=== PATIENT | female | born 1990 | race Caucasian/White ===

== ENCOUNTER 2022-04-26 14:50 | Outpatient (RCR) | payer OTHER, SELFPAY ==
[2022-04-26 16:00] LABS: Basophils Percent Auto 0.5 % (0.2-1.2); Eosinophils Absolute Auto 0.1 K/mm3 (0-0.3); Eosinophils Percent Auto 1.1 % (0-4.4); Hematocrit 35.7 % (37.0-47.0); Hemoglobin 12.5 g/dL (12.0-15.0); Immature Granulocyte Absolute 0.02 K/mm3 (0.00-0.031); Immature Granulocyte Percent A 0.3 % (0-0.5); Lymphocytes Absolute Auto 1.59 K/mm3 (0.9-3.2); Lymphocytes Percent Auto 26.1 % (18.3-44.2); Mean Corpuscular Hemoglobin 29.6 pg (26-34); Mean Corpuscular Volume 84.4 fl (80-100); Mean Platelet Volume 10.8 fl (7.4-10.4); Monocytes Absolute Auto 0.6 K/mm3 (0.1-0.6); Neutrophils Absolute Auto 3.8 K/mm3 (1.3-6.7); Platelet Count Result 197 k/mm3 (150-375); Red Blood Count 4.23 M/mm3 (4.2-5.4); White Blood Count 6.1 K/mm3 (4.5-10.0)
[2022-04-26 16:47] LABS: Hepatitis B Surface Antigen Negative (Negative)
[2022-04-26 16:52] LABS: HIV 1/2 Ab P24 Ag Result Negative (Negative)
[2022-04-27 12:32] LABS: Rapid Plasma Reagin Non-Reactive (NonReactive)
[2022-04-28 16:03] LABS: CMV IgG Antibody <0.60 U/mL (<0.60)
== END 2022-07-25 23:59 | disposition home or self-care (01) ==
LOC: ANHLAB 14:50
PROVIDERS: Visit Provider Student in an Organized Health Care Education/Training Program
DX: Z11.4 Encounter for screening for human immunodeficiency virus [HIV] (principal); N94.89 Other specified conditions associated with female genital organs and menstrual cycle
CPT/HCPCS: 36415; 84702; 85025; 86592; 86644; 86703; 86747; 86787; 86850; 86900; 86901; 87086; 87340; G0432

== ENCOUNTER 2024-06-19 14:50 | Emergency (ER) | payer OTHER, SELFPAY ==
--- NOTE | ~2024-06-19 | XR_ITS ---
XR abdomen/kub 1V Ordering provider: Lary Moura APRN History: . pt found worms in her stool . Comparison: None. FINDINGS: BOWEL: Nonobstructive bowel gas pattern. Fecal material is loaded in the colon. ORGANOMEGALY: None. SIGNIFICANT PATHOLOGIC CALCIFICATIONS: None. OTHER: No free air is seen under the diaphragm. IMPRESSION: NO ACUTE ABDOMINAL FINDINGS. Constipation. Reviewed, dictated and finalized at location A.
[2024-06-19 14:53] VITALS: BP 159/102; PULSE 90; RESP 16; TEMP 36.2; O2SAT 99
--- NOTE | 2024-06-19 15:14 | ED_ITS ---
HPI - General Adult General Chief complaint: Unspecified <Lary Moura APRN - Last Filed: 06/19/24 15:19> Stated complaint: Abdominal pain, fatigue <Lary Moura APRN - Last Filed: 06/19/24 15:19> Time Seen by Provider: 06/19/24 15:00 <Lary Moura APRN - Last Filed: 06/19/24 15:19> Focused HPI: Patient is a 34 year old female who presents to the ER with concerns of recent passage of a tapeworm. She reports her last bowel movement was 2 days ago. Earlier today she endorses some blood in her stool and reports a tapeworm came out. Pt denies any rectal pain, abdominal pain, or recent fevers. GENERAL: Well-appearing, well-nourished, and in no acute distress. HEAD: Normocephalic, atraumatic. CHEST: Clear to auscultation. ?No respiratory distress. HEART: Regular rate and rhythm.? NEURO: ?Alert and oriented x3. Patient screened in triage and initial orders placed.? ?Additional care and disposition to be based upon?diagnostic testing and treatment. <Lary Moura APRN - Last Filed: 06/19/24 15:19> History of Present Illness HPI narrative: I agree with the above HPI <Kulwinder Brunson MD - Last Filed: 06/19/24 21:33> Related Data Home medications: Home Medications ?Medication ?Instructions ?Recorded ?Confirmed ?Last Taken ?Type prenat.vits,susie,tel-onse-mxhok 1 tablet PO DAILY 05/19/22 07/15/22 Unknown History <Lary Moura APRN - Last Filed: 06/19/24 15:19> Allergies/adverse reactions: Allergies Allergy/AdvReac Type Severity Reaction Status Date / Time minocycline Allergy Mild Rash Verified 09/16/22 10:48 tetracycline Allergy Mild Rash Verified 09/16/22 10:48 <Lary Moura APRN - Last Filed: 06/19/24 15:19> Review of Systems 2 Review of Systems: All systems reviewed & are unremarkable except as noted in HPI and below <Kulwinder Brunson MD - Last Filed: 06/19/24 21:33> PMFSH Past Medical History Medical History: Medical History Anxiety Suppression of menses <Lary Moura APRN - Last Filed: 06/19/24 15:19> Family History Family History: Family History Father Hypertension Grandparent Cerebrovascular accident Malignant neoplasm of skin Mother Heart disease Malignant neoplasm of skin <Lary Moura STEEL LOADER - Last Filed: 06/19/24 15:19> Social History Social History: Social History Smoking status: Current every day smoker Tobacco type: cigarettes Alcohol intake: current Alcohol use details: occasional Substance use: never Living arrangements: with family Occupation/Education: unemployed Gender identity (if verbalized by the patient): Female Sexual Orientation (if Verbalized by the Patient): Straight or Heterosexual <Lary Moura STEEL LOADER - Last Filed: 06/19/24 15:19> Course Vital Signs Vital signs: Vital Signs Temperature 97.2 F L 06/19/24 14:53 Pulse Rate 90 06/19/24 14:53 Respiratory Rate 16 06/19/24 14:53 Blood Pressure 159/102 H 06/19/24 14:53 Pulse Oximetry 99 06/19/24 14:53 Oxygen Delivery Room Air 06/19/24 14:53 Temperature 97.2 F L 06/19/24 14:53 Pulse Rate 90 06/19/24 14:53 Respiratory Rate 16 06/19/24 14:53 Blood Pressure 159/102 H 06/19/24 14:53 Pulse Oximetry 99 06/19/24 14:53 Oxygen Delivery Room Air 06/19/24 14:53 <Lary Moura STEEL LOADER - Last Filed: 06/19/24 15:19> Vital Signs Temperature 97.2 F L 06/19/24 14:53 Pulse Rate 90 06/19/24 14:53 Respiratory Rate 16 06/19/24 14:53 Blood Pressure 159/102 H 06/19/24 14:53 Pulse Oximetry 99 06/19/24 14:53 Oxygen Delivery Room Air 06/19/24 14:53 Temperature 97.2 F L 06/19/24 14:53 Pulse Rate 90 06/19/24 14:53 Respiratory Rate 16 06/19/24 14:53 Blood Pressure 159/102 H 06/19/24 14:53 Pulse Oximetry 99 06/19/24 14:53 Oxygen Delivery Room Air 06/19/24 14:53 <Kulwinder Brunson MD - Last Filed: 06/19/24 21:33> Medical Decision Making MDM Narrative Medical decision making narrative: 34-year-old female presents to the emergency department for evaluation for concern of passing a taper. Patient did pass a white flatness substance and was concerned it was a taper. Patient is currently afebrile with no leukocytosis and a stable hemoglobin. Patient has no acute abnormalities on her CMP UA was negative for infection. CT does show evidence of constipation. Patient was not able to provide a stool sample emergency department. Patient was encouraged to start taking MiraLax and Metamucil to help soften her stools and patient was told to have follow-up with her primary care physician <Kulwinder Brunson MD - Last Filed: 06/19/24 21:33> Vital Signs Vital Signs: Vital Signs Temperature 97.2 F L 06/19/24 14:53 Pulse Rate 90 06/19/24 14:53 Respiratory Rate 16 06/19/24 14:53 Blood Pressure 159/102 H 06/19/24 14:53 Pulse Oximetry 99 06/19/24 14:53 Oxygen Delivery Room Air 06/19/24 14:53 Temperature 97.2 F L 06/19/24 14:53 Pulse Rate 90 06/19/24 14:53 Respiratory Rate 16 06/19/24 14:53 Blood Pressure 159/102 H 06/19/24 14:53 Pulse Oximetry 99 06/19/24 14:53 Oxygen Delivery Room Air 06/19/24 14:53 <Lary Moura APRN - Last Filed: 06/19/24 15:19> Vital Signs Temperature 97.2 F L 06/19/24 14:53 Pulse Rate 90 06/19/24 14:53 Respiratory Rate 16 06/19/24 14:53 Blood Pressure 159/102 H 06/19/24 14:53 Pulse Oximetry 99 06/19/24 14:53 Oxygen Delivery Room Air 06/19/24 14:53 Temperature 97.2 F L 06/19/24 14:53 Pulse Rate 90 06/19/24 14:53 Respiratory Rate 16 06/19/24 14:53 Blood Pressure 159/102 H 06/19/24 14:53 Pulse Oximetry 99 06/19/24 14:53 Oxygen Delivery Room Air 06/19/24 14:53 <Kulwinder Brunson MD - Last Filed: 06/19/24 21:33> Lab Data Result diagrams: 06/19/24 15:34 06/19/24 15:34 <Lary Moura APRN - Last Filed: 06/19/24 15:19> Labs: Lab Results 06/19/24 06/19/24 Range/Units 15:34 16:04 WBC 5.4 (4.5-10.0) K/mm3 RBC 4.68 (4.2-5.4) M/mm3 Hgb 13.1 (12.0-15.0) g/dL Hct 39.7 (37.0-47.0) % MCV 84.8 (80-100) fl MCH 28.0 (26-34) pg MCHC 33.0 (32-36) g/dl RDW 13.6 (11.5-14.5) % Plt Count 246 (150-375) k/mm3 MPV 10.2 (7.4-10.4) fl Immature Gran % (Auto) 0.2 (0-0.5) % Neut % (Auto) 47.0 (45.5-73.1) % Lymph % (Auto) 35.9 (18.3-44.2) % [place] % (Auto) 11.5 H (2.6-8.5) % Eos % (Auto) 3.7 (0-4.4) % Baso % (Auto) 1.7 H (0.2-1.2) % Lymph # (Auto) 1.93 (0.9-3.2) K/mm3 [place] # (Auto) 0.6 (0.1-0.6) K/mm3 Eos # (Auto) 0.2 (0-0.3) K/mm3 Baso # (Auto) 0.1 (0.0-0.1) K/mm3 Abs Immat Gran (auto) 0.01 (0.00-0.031) K/mm3 Absolute Neuts (auto) 2.5 (1.3-6.7) K/mm3 Absolute Nucleated RBC 0.000 (0.0-0.012) K/mm3 Nucleated RBC % 0.0 (0.0-0.2) % Sodium 138 (137-145) mmol/L Potassium 3.4 (3.4-5.0) mmol/L Chloride 99 (98-107) mmol/L Carbon Dioxide 31 H (22-30) mmol/L Anion Gap 8 (4-12) mmol/L BUN 14 (7-17) mg/dL Creatinine 0.64 L (0.7-1.0) mg/dL Estim Creat Clear Calc 103 ml/min Estimated GFR > 60 (59 - ) Glucose 101 (65-110) mg/dL Calcium 9.0 (8.4-10.2) mg/dL Total Bilirubin 1.1 (0.2-1.3) mg/dL AST 20 (14-36) U/L ALT 14 (6-35) U/L Alkaline Phosphatase 65 (38-126) U/L Total Protein 8.0 (6.3-8.2) g/dL Albumin 4.7 (3.5-5.1) g/dL Lipase 23 (23-300) U/L Urine Color Yellow (Yellow) Urine Appearance Cloudy H (Clear) Urine pH 6.0 (5.0-9.0) Ur Specific [place] 1.029 (1.001-1.035) Urine Protein Trace (Negative) mg/dL Urine Glucose (UA) Negative (Negative) mg/dL Urine Ketones Trace H (Negative) mg/dL Ur Blood (Man) Negative (Negative) Urine Nitrate Negative (Negative) Urine Bilirubin Negative (Negative) Urine Urobilinogen 1.0 (<2.0) mg/dL Add Ur Microanalysis Reviewed Leukocyte Esterase Rfl Negative (Negative) JASMINA/UL Urine RBC 0-2 (0-2) /hpf Urine WBC 11-20 H (0-3) /hpf Ur Squamous Epith Cells Many H (Few) /hpf Urine Bacteria 1+ H /hpf Urine Casts 0-2 <Lary Moura, STEEL LOADER - Last Filed: 06/19/24 15:19> Lab Results 06/19/24 06/19/24 Range/Units 15:34 16:04 WBC 5.4 (4.5-10.0) K/mm3 RBC 4.68 (4.2-5.4) M/mm3 Hgb 13.1 (12.0-15.0) g/dL Hct 39.7 (37.0-47.0) % MCV 84.8 (80-100) fl MCH 28.0 (26-34) pg MCHC 33.0 (32-36) g/dl RDW 13.6 (11.5-14.5) % Plt Count 246 (150-375) k/mm3 MPV 10.2 (7.4-10.4) fl Immature Gran % (Auto) 0.2 (0-0.5) % Neut % (Auto) 47.0 (45.5-73.1) % Lymph % (Auto) 35.9 (18.3-44.2) % [place] % (Auto) 11.5 H (2.6-8.5) % Eos % (Auto) 3.7 (0-4.4) % Baso % (Auto) 1.7 H (0.2-1.2) % Lymph # (Auto) 1.93 (0.9-3.2) K/mm3 [place] # (Auto) 0.6 (0.1-0.6) K/mm3 Eos # (Auto) 0.2 (0-0.3) K/mm3 Baso # (Auto) 0.1 (0.0-0.1) K/mm3 Abs Immat Gran (auto) 0.01 (0.00-0.031) K/mm3 Absolute Neuts (auto) 2.5 (1.3-6.7) K/mm3 Absolute Nucleated RBC 0.000 (0.0-0.012) K/mm3 Nucleated RBC % 0.0 (0.0-0.2) % Sodium 138 (137-145) mmol/L Potassium 3.4 (3.4-5.0) mmol/L Chloride 99 (98-107) mmol/L Carbon Dioxide 31 H (22-30) mmol/L Anion Gap 8 (4-12) mmol/L BUN 14 (7-17) mg/dL Creatinine 0.64 L (0.7-1.0) mg/dL Estim Creat Clear Calc 103 ml/min Estimated GFR > 60 (59 - ) Glucose 101 (65-110) mg/dL Calcium 9.0 (8.4-10.2) mg/dL Total Bilirubin 1.1 (0.2-1.3) mg/dL AST 20 (14-36) U/L ALT 14 (6-35) U/L Alkaline Phosphatase 65 (38-126) U/L Total Protein 8.0 (6.3-8.2) g/dL Albumin 4.7 (3.5-5.1) g/dL Lipase 23 (23-300) U/L Urine Color Yellow (Yellow) Urine Appearance Cloudy H (Clear) Urine pH 6.0 (5.0-9.0) Ur Specific [place] 1.029 (1.001-1.035) Urine Protein Trace (Negative) mg/dL Urine Glucose (UA) Negative (Negative) mg/dL Urine Ketones Trace H (Negative) mg/dL Ur Blood (Man) Negative (Negative) Urine Nitrate Negative (Negative) Urine Bilirubin Negative (Negative) Urine Urobilinogen 1.0 (<2.0) mg/dL Add Ur Microanalysis Reviewed Leukocyte Esterase Rfl Negative (Negative) JASMINA/UL Urine RBC 0-2 (0-2) /hpf Urine WBC 11-20 H (0-3) /hpf Ur Squamous Epith Cells Many H (Few) /hpf Urine Bacteria 1+ H /hpf Urine Casts 0-2 <Kulwinder Brunson MD - Last Filed: 06/19/24 21:33> Discharge Plan Discharge Clinical Impression: Constipation <Lary Moura APRN - Last Filed: 06/19/24 15:19> Patient Disposition: Home, Self-Care <Lary Moura APRN - Last Filed: 06/19/24 15:19> Condition: Stable <Lary Moura APRN - Last Filed: 06/19/24 15:19> Instructions: Antibiotic Form, Constipation (DC) <Lary Moura APRN - Last Filed: 06/19/24 15:19> Additional Instructions: start taking MiraLax and Metamucil to help soften your stool, drink plenty of fluids. Have close follow-up with your primary care physician. <Lary Moura APRN - Last Filed: 06/19/24 15:19> Patient Language: Romanian <Lary Moura APRN - Last Filed: 06/19/24 15:19> Prescriptions: No Action metoclopramide HCl [Reglan] 5 mg tablet 5 mg PO Q6H Qty: 30 3RF prenat.vits,susie,obt-elfu-irefo Tablet 1 tablet PO DAILY ferrous sulfate 325 mg (65 mg iron) tablet 325 mg PO DAILY Qty: 90 2RF <Lary Moura APRN - Last Filed: 06/19/24 15:19> Follow-up/Referrals: UNKNOWN,DOCTOR [Primary Care Provider] - <Lary Moura APRN - Last Filed: 06/19/24 15:19>
[2024-06-19 15:41] LABS: Basophils Absolute Auto 0.1 K/mm3 (0.0-0.1); Basophils Percent Auto 1.7 % (0.2-1.2); Eosinophils Absolute Auto 0.2 K/mm3 (0-0.3); Eosinophils Percent Auto 3.7 % (0-4.4); Hematocrit 39.7 % (37.0-47.0); Hemoglobin 13.1 g/dL (12.0-15.0); Immature Granulocyte Absolute 0.01 K/mm3 (0.00-0.031); Immature Granulocyte Percent A 0.2 % (0-0.5); Lymphocytes Absolute Auto 1.93 K/mm3 (0.9-3.2); Lymphocytes Percent Auto 35.9 % (18.3-44.2); Mean Corpuscular Volume 84.8 fl (80-100); Mean Platelet Volume 10.2 fl (7.4-10.4); Monocytes Absolute Auto 0.6 K/mm3 (0.1-0.6); Monocytes Percent Auto 11.5 % (2.6-8.5); Neutrophils Absolute Auto 2.5 K/mm3 (1.3-6.7); Platelet Count Result 246 k/mm3 (150-375); Red Blood Count 4.68 M/mm3 (4.2-5.4); Red Cell Distribution Width 13.6 % (11.5-14.5); White Blood Count 5.4 K/mm3 (4.5-10.0)
[2024-06-19 15:51] LABS: Alanine Aminotransferase 14 U/L (6-35); Albumin Level 4.7 g/dL (3.5-5.1); Alkaline Phosphatase 65 U/L (38-126); Anion Gap 8 mmol/L (4-12); Aspartate Amino Transferase 20 U/L (14-36); Bilirubin,Total 1.1 mg/dL (0.2-1.3); Blood Urea Nitrogen 14 mg/dL (7-17); Carbon Dioxide 31 mmol/L (22-30); Chloride 99 mmol/L (98-107); Estimated CRCL calculation 103 ml/min; Estimated Glomerular Filt Rate > 60; Glucose 101 mg/dL (65-110); Lipase 23 U/L (23-300); Potassium 3.4 mmol/L (3.4-5.0); Sodium 138 mmol/L (137-145)
[2024-06-19 16:23] LABS: Add Urine Microscopic? YES; Appearance Urine Cloudy (Clear); Bacteria Urine 1+ /hpf; Bilirubin Urine Negative (Negative); Blood Urine Negative (Negative); Color Urine Yellow (Yellow); Glucose Urine UA Negative (Negative); Ketones Urine Trace mg/dL (Negative); Leukocyte Esterase Ur Negative LEU/UL (Negative); Need Manual Microscopic Reviewed; Nitrate Urine Negative (Negative); Non Pathogenic Casts 0-2; Protein Urine Trace mg/dL (Negative); RBC Urine 0-2 /hpf (0-2); Specific Grav Ur 1.029 (1.001-1.035); Squamous Epithelial Cell Urine Many /hpf (Few)
--- OUTSIDE RECORDS SUMMARY | 2024-06-19 17:22 | XMS_ITS ---
Author Organization [facility] Address [address] [place] [address] Care Team Providers Care Statistics Teacher Name Role Phone Alexx Hernandez Unavailable [phone] REASON FOR VISIT DOC: Fentanyl Last Use: 07/13/23 Was treated at a Methadone treatment center. Referred by yen and YUE. [place] location is closer to patient for location. Encounters Encounter Location Date Provider Diagnosis [facility] [address] [place] [address] 07/21/2023 Alexx Hernandez Plan Of Treatment No Information Progress Notes * Michela VAZQUEZaDOB:1990 (34 yo F)Acc No.[id number]:07/21/2023 UNLOCKED PROGRESS NOTE Patient: Melissa REYES Provider: Chris Hernandez MSN, [place]HGIACH, [employer] SALES REPRESENTATIVE-C :1990 A ge:33 Y S ex:Female Date:07/21/2023 Address:[address] [place], [place] [id number] Subjective: * Chief Complaints: * 1 . DOC: Fentanyl Last Use: 07/13/23 Was treated at a Methadone treatment center. Referred by yen and YUE. [place] location is closer to patient for location.. * Medical History: Objective: * Vitals: Assessment: Plan: * Treatment: * * Electronic signature of Fernanda Hernandez APRN, [id number] on 06/19/2024 at 05:22 PM CDT Sign off status: Pending * Provider: Chris Hernandez MSN, [employer], [employer] SALES REPRESENTATIVE-C Date: 0 07/21/2023 Generated for Navarro heartAmeena/Hetal on: 0 06/19/2024 05:22 PM CDT
--- OUTSIDE RECORDS SUMMARY | 2024-06-19 17:23 | XMS_ITS | Patient Health Record ---
Author Organization [facility] Address [address] [place] [address] Care Team Providers Care Fuel Attendant Name Role Phone Alexx Hernandez Unavailable [phone] Reason For Referral No Information Plan Of Treatment No Information Insurance Providers Payer Name Payer Address Payer Phone Subscriber Number Group Number Insured Name Patient Relationship to Insured Coverage Start Date Coverage End Date [facility] Attn Claims Department [address] [place] [address] [id number] Melissa Vazquez Self - patient is the insured 4
--- OUTSIDE RECORDS SUMMARY | 2024-06-19 17:23 | XMS_ITS | Data Portability ---
Author Organization [facility] Address [address] [place] [address] Care Team Providers Care Twist Packer Name Role Phone DIXIECAMARIANAHEIKE Primary Care Provider Assessment No assessment recorded. Plan of Treatment Reminders Order Date Submit Date Provider Last Modified By Organization Details Last Modified Time Details Appointments None recorded. Lab CMP, serum or plasma 2023 024 [facility], [address], [place], [address], 4 07:14:25 lipid panel, serum 2023 024 [facility], [address], [place], [address], 4 07:14:24 CBC w/ auto diff 2023 024 [facility], [address], [place], [address], 4 07:14:25 TSH + free T4, serum 2023 024 [facility], [address], [address], [place], [address], 4 08:40:37 HbA1c (hemoglobin A1c), blood 2023 024 [facility], [address], [address], [place], [address], 4 08:40:39 TIBC (total iron-bindin g capacity), serum 2023 024 [facility] [facility], [address], [address], [place], [address], 4 08:40:38 ferritin, serum or plasma 2023 024 [place] [facility], [address], [address], [place], [address], 4 08:40:39 unlisted lab - compliance drug analysis, ur 2016 017 RODRIGO [facility], [address], [address], [place], [address], 7 15:15:23 rf (rheumatoid factor) + anti-ccp abs, serum 2016 017 [facility], [address], [address], [place], [address], 7 15:42:[address] referral 2023 024 [facility] (Dermatology) , [address] [facility] , [address], [place], [address], 4 12:16:26 obstetricia n and gynecologis t referral 2023 024 jared [facility], [address], [place], [address], 4 12:16:27 rheumatolog ist [facility] [address] [facility], [address], [facility] [address], [place], [address], 7 08:00:28 behavioral health referral [address] [facility] Not available 7 09:27:08 Procedures None recorded. Surgeries None recorded. Imaging XR, hand 2016 017 strice Not available 7 16:18:57 Medication Orders hydroxyzine HCl 10 mg tablet 2023 024 [facility] #[id number], [address], [place], [id number], 4 15:05:52 nicotine 21mg/24hr-1 4mg/24hr-7m g/24hr daily transderm patches,seq uentl 2016 017 [facility] #[id number], [address], [place], [id number], 3 14:17:28 naproxen 500 mg tablet 2016 017 [facility] #[id number], [address], [place], [id number], 3 14:17:42 Pepcid 20 mg tablet 2016 017 [facility] #[id number], [address], [place], [id number], 3 14:17:12 Patient TargetsNo targets recorded. 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 Referring Physician: Charlotte Umanzor, Internal Medicine, Encounter Date: 05/25/2016 Behavioral Health Referral f or Chronic anxiety Referring Physician: Charlotte Umanzor, Internal Medicine, Encounter Date: 05/25/2016 Inbound Call Center Agent Referral for C hange in skin lesion Referring Physician: Heike Veliz [facility], Encounter Date: 04/05/2023 Orthotic Aide And Gynecologis t Referral for Screening for malignant neoplasm of cervix Referring Physician: Heike Veliz [facility], Encounter Date: 04/05/2023 Results Created Date Observation Date Name Description Value Unit Range Abnormal Flag Note LastModifiedBy Organization Detail LastModifiedTime 05/25/19 17 06/02/2016 drug scree n, urine summary FINAL ===== ===== ===== ===== ===== ===== ===== ===== ===== ===== ===== ===== ===== === TOXAS SURE COMP DRUG JAIRO SIS,U R ===== ===== ===== ===== ===== ===== ===== ===== ===== ===== ===== ===== ===== === TEST RESUL T FLAG UNITS DRUG PRESE NT METHA MPHET AMINE 3654 NG/MG CREAT AMPHE TAMIN E 1346 NG/MG CREAT SOURC ES OF METHA MPHET AMINE INCLU DE ILLIC IT SOURC ES, A SCHED ULED PRESC RIPTI ON MEDIC ATION , A METAB OLITE OF SOME PRESC RIPTI ON DRUGS , OR USE OF AN L-MET HAMPH ETAMI NE INHAL ER. AMPHE TAMIN E IS AN EXPEC JOHANNY METAB OLITE OF METHA MPHET AMINE . AMPHE TAMIN E IS ALSO AVAIL ABLE A SCHED ULE II PRESC RIPTI ON DRUG. CARBO XY-TH C 9 NG/MG CREAT CARBO XY-TH C IS A METAB OLITE OF TETRA HYDRO CANNA BINOL (THC) . SOURC E OF THC IS MOST COMMO NLY ILLIC IT, BUT THC IS ALSO PRESE NT IN A SCHED ULED PRESC RIPTI ON MEDIC ATION . FENTA NYL 106 NG/MG CREAT NORFE NTANY L >439 NG/MG CREAT SOURC E OF FENTA NYL IS A SCHED ULED PRESC RIPTI ON MEDIC ATION , INCLU DING IV, PATCH , AND TRANS MUCOS AL FORMU LATIO NS. ELDONFE SKIP L IS AN EXPEC JOHANNY METAB OLITE OF FENTA NYL. ZOLPI DEM PRESE NT DIPHE NHYDR AMINE PRESE NT ===== ===== ===== ===== ===== ===== ===== ===== ===== ===== ===== ===== ===== === TEST RESUL T FLAG UNITS REF RANGE CREAT ININE 228 MG/DL >=20 ===== ===== ===== ===== ===== ===== ===== ===== ===== ===== ===== ===== ===== === DECLA RED MEDIC ATION S: MEDIC ATION LIST WAS NOT PROVI DED. ===== ===== ===== ===== ===== ===== ===== ===== ===== ===== ===== ===== ===== === FOR CLINI SUSIE CONSU LTATI ON, PLEAS E CALL [phone]. ===== ===== ===== ===== ===== ===== ===== ===== ===== ===== ===== ===== ===== === Not Available [facility] [address] [facility] [address], [place], [address], 06/02/2016 15:15:23 05/25/19 17 06/02/2016 drug scree n, urine pdf . Not Available [facility] [address] [facility] [address] [place], [address], 06/02/2016 15:15:23 04/05/19 24 04/07/2023 LIPID PANEL WITH LDL/H DL RATIO cholesterol, total 311 mg/dL 100-19 9 above high normal Not Available [facility] ([facility]) [address] [facility], [place], [address], 04/07/2023 07:14:24 04/05/19 24 04/07/2023 LIPID PANEL WITH LDL/H DL RATIO triglyceride s 232 mg/dL 0-149 above high normal Not Available [facility] ([facility]) [address] [facility], [place], [address], 04/07/2023 07:14:24 04/05/19 24 04/07/2023 LIPID PANEL WITH LDL/H DL RATIO HDL cholesterol 62 mg/dL >39 Not Available [facility]) [address] [place], [address], 04/07/2023 07:14:24 04/05/19 24 04/07/2023 LIPID PANEL WITH LDL/H DL RATIO VLDL cholesterol susie 45 mg/dL 5-40 above high normal Not Available [facility] ([facility]) [address] [place], [address], 04/07/2023 07:14:24 04/05/19 24 04/07/2023 LIPID PANEL WITH LDL/H DL RATIO LDL chol calc ([facility]) 204 mg/dL 0-99 above high normal Not Available [facility] ([facility]) [address] [place], [address], 04/07/2023 07:14:24 04/05/19 24 04/07/2023 LIPID PANEL WITH LDL/H DL RATIO comment: Commen t Possi ble Famil ial Hyper [place] stero lemia . FH shoul d be suspe cted when fasti ng LDL [place] stero l is above 189 mg/dL or non-H DL [place] stero l is above 219 mg/dL . A famil y histo ry of high [place] stero l and heart disea se in 1st degre e relat joeljazmín campbell d be colle cted. J Clin Lipid ol 2011; 5:133 -140 Not Available [facility] ([facility]) [address] [place], [address], 04/07/2023 07:14:24 04/05/19 24 04/07/2023 LIPID PANEL WITH LDL/H DL RATIO LDL/HDL ratio 3.3 ratio 0.0-3. 2 above high normal LDL/H DL Ratio Men Women 1/2 Avg.R isk 1.0 1.5 Avg.R isk 3.6 3.2 2X Avg.R isk 6.2 5.0 3X Avg.R isk 8.0 6.1 Not Available [facility] ([facility]) [address] [facility], [place], [address], 04/07/2023 07:14:24 04/05/19 24 04/07/2023 COMP. METAB OLIC PANEL (14) glucose 137 mg/dL 70-99 above high normal Not Available [facility] ([facility]) [address] [place], [address], 04/07/2023 07:14:25 04/05/19 24 04/07/2023 COMP. METAB OLIC PANEL (14) BUN 11 mg/dL 6-20 Not Available [facility] ([facility]) [address] [place], [address], 04/07/2023 07:14:25 04/05/19 24 04/07/2023 COMP. METAB OLIC PANEL (14) creatinine 0.77 mg/dL 0.57-1 .00 Not Available [facility] ([facility]) [address] [place], [address], 04/07/2023 07:14:25 04/05/19 24 04/07/2023 COMP. METAB OLIC PANEL (14) eGFR 104 mL/mi n/1.7 3 >59 Not Available [facility] ([facility]) [address] [facility], [place], [address], 04/07/2023 07:14:25 04/05/19 24 04/07/2023 COMP. METAB OLIC PANEL (14) BUN/creatini ne ratio 14 9-23 Not Available [facility] ([facility]) [address] [facility], [place], [address], 04/07/2023 07:14:25 04/05/19 24 04/07/2023 COMP. METAB OLIC PANEL (14) sodium 141 mmol/ L 134-14 4 Not Available [facility] ([facility]) [address] [facility], [place], [address], 04/07/2023 07:14:25 04/05/19 24 04/07/2023 COMP. METAB OLIC PANEL (14) potassium 4.1 mmol/ L 3.5-5. 2 Not Available [facility] ([facility]) [address] [facility], [place], [address], 04/07/2023 07:14:25 04/05/19 24 04/07/2023 COMP. METAB OLIC PANEL (14) chloride 99 mmol/ L 96-106 Not Available [facility] ([facility]) [address] [facility], [place], [address], 04/07/2023 07:14:25 04/05/19 24 04/07/2023 COMP. METAB OLIC PANEL (14) carbon dioxide, total 27 mmol/ L 20-29 Not Available [facility] ([facility]) [address] [facility], [place], [address], 04/07/2023 07:14:25 04/05/19 24 04/07/2023 COMP. METAB OLIC PANEL (14) calcium 9.2 mg/dL 8.7-10 .2 Not Available [facility] ([facility]) [address] [facility], [place], [address], 04/07/2023 07:14:25 04/05/19 24 04/07/2023 COMP. METAB OLIC PANEL (14) protein, total 6.6 g/dL 6.0-8. 5 Not Available [facility] ([facility]) [address], [place], [address], 04/07/2023 07:14:25 04/05/19 24 04/07/2023 COMP. METAB OLIC PANEL (14) albumin 4.4 g/dL 3.9-4. 9 Not Available [facility] ([facility]) [address], [place], [address], 04/07/2023 07:14:25 04/05/19 24 04/07/2023 COMP. METAB OLIC PANEL (14) globulin, total 2.2 g/dL 1.5-4. 5 Not Available [facility] ([facility]) [address] [facility], [place], [address], 04/07/2023 07:14:25 04/05/19 24 04/07/2023 COMP. METAB OLIC PANEL (14) A/G ratio 2.0 1.2-2. 2 Not Available [facility] ([facility]) [address] [facility], [place], [address], 04/07/2023 07:14:25 04/05/19 24 04/07/2023 COMP. METAB OLIC PANEL (14) bilirubin, total 0.4 mg/dL 0.0-1. 2 Not Available [facility] ([facility]) [address] [facility], [place], [address], 04/07/2023 07:14:25 04/05/19 24 04/07/2023 COMP. METAB OLIC PANEL (14) alkaline phosphatase 84 IU/L 44-121 Not Available [facility]) [address] [facility], [place], [address], 04/07/2023 07:14:25 04/05/19 24 04/07/2023 COMP. METAB OLIC PANEL (14) AST (SGOT) 15 IU/L 0-40 Not Available [facility] ([facility]) [address] [facility], [place], [address], 04/07/2023 07:14:25 04/05/19 24 04/07/2023 COMP. METAB OLIC PANEL (14) ALT (SGPT) 14 IU/L 0-32 Not Available [facility] ([facility]) [address] [facility], [place], [address], 04/07/2023 07:14:25 04/05/19 24 04/07/2023 CBC WITH DIFFE RENTI AL/PL ATELE T WBC 6.2 x10e3 /uL 3.4-10 .8 Not Available [facility] ([facility]) [address] [facility], [place], [address], 04/07/2023 07:14:25 04/05/19 24 04/07/2023 CBC WITH DIFFE RENTI AL/PL ATELE T RBC 4.92 x10e6 /uL 3.77-5 .28 Not Available [facility] ([facility]) [address] [facility], [place], [address], 04/07/2023 07:14:25 04/05/19 24 04/07/2023 CBC WITH DIFFE RENTI AL/PL ATELE T hemoglobin 13.9 g/dL 11.1-1 5.9 Not Available [facility] ([facility]) [address] [facility], [place], [address], 04/07/2023 07:14:25 04/05/19 24 04/07/2023 CBC WITH DIFFE RENTI AL/PL ATELE T hematocrit 43.4 % 34.0-4 6.6 Not Available [facility] ([facility]) [address] [facility], [place], [address], 04/07/2023 07:14:25 04/05/19 24 04/07/2023 CBC WITH DIFFE RENTI AL/PL ATELE T MCV 88 fL 79-97 Not Available [facility] ([facility]) [address] [facility], [place], [address], 04/07/2023 07:14:25 04/05/19 24 04/07/2023 CBC WITH DIFFE RENTI AL/PL ATELE T MCH 28.3 pg 26.6-3 3.0 Not Available [facility] ([facility]) [address] [facility], [place], [address], 04/07/2023 07:14:25 04/05/19 24 04/07/2023 CBC WITH DIFFE RENTI AL/PL ATELE T MCHC 32.0 g/dL 31.5-3 5.7 Not Available [facility] ([facility]) [address] [place], [address], 04/07/2023 07:14:25 04/05/19 24 04/07/2023 CBC WITH DIFFE RENTI AL/PL ATELE T RDW 12.3 % 11.7-1 5.4 Not Available [facility] ([facility]) [address] [facility], [place], [address], 04/07/2023 07:14:25 04/05/19 24 04/07/2023 CBC WITH DIFFE RENTI AL/PL ATELE T platelets 221 x10e3 /uL 150-45 0 Not Available [facility] ([facility]) [address] [place], [address], 04/07/2023 07:14:25 04/05/19 24 04/07/2023 CBC WITH DIFFE RENTI AL/PL ATELE T neutrophils 67 % notest ab. Not Available [facility] ([facility]) [address] [place], [address], 04/07/2023 07:14:25 04/05/19 24 04/07/2023 CBC WITH DIFFE RENTI AL/PL ATELE T lymphs 22 % notest ab. Not Available [facility] ([facility]) [address] [facility], [place], [address], 04/07/2023 07:14:25 04/05/19 24 04/07/2023 CBC WITH DIFFE RENTI AL/PL ATELE T monocytes 8 % notest ab. Not Available [facility] ([facility]) [address] [facility], [place], [address], 04/07/2023 07:14:25 04/05/19 24 04/07/2023 CBC WITH DIFFE RENTI AL/PL ATELE T eos 2 % notest ab. Not Available [facility] ([facility]) [address] [facility], [place], [address], 04/07/2023 07:14:25 04/05/19 24 04/07/2023 CBC WITH DIFFE RENTI AL/PL ATELE T basos 1 % notest ab. Not Available [facility] ([facility]) [address] [facility], [place], [address], 04/07/2023 07:14:25 04/05/19 24 04/07/2023 CBC WITH DIFFE RENTI AL/PL ATELE T neutrophils (absolute) 4.2 x10e3 /uL 1.4-7. 0 Not Available [facility] ([facility]) [address] [facility], [place], [address], 04/07/2023 07:14:25 04/05/19 24 04/07/2023 CBC WITH DIFFE RENTI AL/PL ATELE T lymphs (absolute) 1.4 x10e3 /uL 0.7-3. 1 Not Available [facility] ([facility]) [address] [facility], [place], [address], 04/07/2023 07:14:25 04/05/19 24 04/07/2023 CBC WITH DIFFE RENTI AL/PL ATELE T monocytes(ab solute) 0.5 x10e3 /uL 0.1-0. 9 Not Available [facility] ([facility]) [address] [facility], [place], [address], 04/07/2023 07:14:25 04/05/19 24 04/07/2023 CBC WITH DIFFE RENTI AL/PL ATELE T eos (absolute) 0.1 x10e3 /uL 0.0-0. 4 Not Available [facility] ([facility]) [address] [facility], [place], [address], 04/07/2023 07:14:25 04/05/19 24 04/07/2023 CBC WITH DIFFE RENTI AL/PL ATELE T baso (absolute) 0.1 x10e3 /uL 0.0-0. 2 Not Available [facility] ([facility]) [address] [facility], [place], [address], 04/07/2023 07:14:25 04/05/19 24 04/07/2023 CBC WITH DIFFE RENTI AL/PL ATELE T immature granulocytes 0 % notest ab. Not Available [facility] ([facility]) [address] [facility], [place], [address], 04/07/2023 07:14:25 04/05/19 24 04/07/2023 CBC WITH DIFFE RENTI AL/PL ATELE T immature grans (abs) 0.0 x10e3 /uL 0.0-0. 1 Not Available [facility] ([facility]) [address] [facility], [place], [address], 04/07/2023 07:14:25 04/05/1904/07/2023 TSH+F REE T4 TSH 1.340 uIU/m L 0.450- 4.500 Not Available [facility] ([facility]) [address] [facility], [place], [address], 04/07/2023 08:40:37 04/05/1904/07/2023 TSH+F REE T4 T4,free(dire ct) 1.09 NG/dL 0.82-1 .77 Not Available [facility] ([facility]) [address] [place], [address], 04/07/2023 08:40:37 04/05/19 24 04/07/2023 IRON AND TIBC iron bind.cap.(TI BC) 335 ug/dL 250-45 0 Not Available [facility] ([facility]) [address] [place], [address], 04/07/2023 08:40:38 04/05/19 24 04/07/2023 IRON AND TIBC UIBC 255 ug/dL 131-42 5 Not Available [facility] ([facility]) [address] [place], [address], 04/07/2023 08:40:38 04/05/19 24 04/07/2023 IRON AND TIBC iron 80 ug/dL 27-159 Not Available [facility] ([facility]) [address] [place], [address], 04/07/2023 08:40:38 04/05/19 24 04/07/2023 IRON AND TIBC iron saturation 24 % 15-55 Not Available [facility] ([facility]) [address] [place], [address], 04/07/2023 08:40:38 04/05/19 24 04/07/2023 HEMOG LOBIN A1C hemoglobin A1C 5.2 % 4.8-5. 6 Predi abete s: 5.7 - 6.4 Diabe deon: >6.4 Glyce janie contr ol for adult s with diabe deon: <7.0 Not Available [facility] ([facility]) [address] [place], [address], 04/07/2023 08:40:39 04/05/19 24 04/07/2023 TEMO TIN ferritin 21 NG/mL 15-150 Not Available [facility] ([facility]) [address], [place], [address], 04/07/2023 08:40:39 Result Notes None recorded. Problems Name Problem SNOMED Code Status Onset Date Resolution Date Notes Provider Name and Address Organization Details Recorded Time Anxiety 33825684 Active 2023 Ashlie Brunner MA [facility], [place] - [place] 4 14:49:17 Hyperlipidemia 45339107 Active 2023 LUIS E DUMONT Attn: Laoy bart,[address], [place], [address], [facility] - [facility] 4 14:32:20 Problem Notes None recorded. Medical Equipment None Reported. Allergies Allergen ID Allergen Name Allergen Category Reaction Reaction Severity Criticality Documentation Date Start Date Code Code System Note Provider Name and Address Organization Details Recorded Time 43801 minocycli ne medicatio n Not available Not available Not available 05/25/2016 6980 RxNorm Drug induc ed Lupus Not Available Not Available Not Available 19037 tetracycl ine medicatio n Not available Not available Not available 05/25/2016 05013 RxNorm Drug induc ed Lupus Not Available Not Available Not Available Medications Name Sig Start Date Stop Date Status Note LastModified by Organization Details LastModified Time cyclobenzap rine 10 mg tablet TAKE 1 TABLET BY MOUTH THREE TIMES DAILY NEEDED FOR MUSCLE SPASMS 02/23 completed Not Available Not Available Not Available amoxicillin 500 mg capsule TAKE 1 CAPSULE BY MOUTH EVERY 8 HOURS FOR 10 DAYS. 02/23 completed Not Available Not Available Not Available atorvastati n 40 mg tablet Take 1 tablet every day by oral route at dinner for 90 days. active Not Available Not Available No t Available clonidine HCl 0.1 mg tablet TAKE 1 TABLET BY MOUTH THREE TIMES DAILY NEEDED 02/23 completed Not Available Not Available Not Available nicotine 14 mg/24 hr daily transdermal patch APPLY 1 PATCH TO SKIN ONCE A DAY 02/23 completed Not Available Not Available Not Available trazodone 50 mg tablet TAKE 1 TABLET BY MOUTH EVERY NIGHT AT BEDTIME NEEDED FOR INSOMNIA 02/23 completed Not Available Not Available Not Available fluconazole 150 mg tablet 05/25 completed Not Available Not Available Not Available Senna Lax 8.6 mg tablet 05/25 completed Not Available Not Available Not Available hydrocodone 5 mg-acetamin ophen 325 mg tablet 05/25 completed Not Available Not Available Not Available clonazepam 1 mg tablet 02/23 completed Not Available Not Available Not Available acetaminoph en 300 mg-codeine 30 mg tablet TAKE 1 TABLET BY MOUTH EVERY 8 HOURS NEEDED FOR PAIN 02/23 completed Not Available Not Available Not Available oxycodone-a cetaminophe n 5 mg-325 mg tablet 02/23 completed Not Available Not Available Not Available metoclopram tito 5 mg tablet TAKE 1 TABLET BY MOUTH EVERY 6 HOURS 02/23 completed Not Available Not Available Not Available methocarbam ol 750 mg tablet TAKE 1 TABLET BY MOUTH EVERY 6 HOURS NEEDED FOR MUSCLE SPASMS 02/23 completed Not Available Not Available Not Available trazodone 150 mg tablet 02/23 completed Not Available Not Available Not Available docusate sodium 100 mg capsule TAKE 1 CAPSULE BY MOUTH TWICE DAILY NEEDED 02/23 completed Not Available Not Available Not Available hydroxyzine HCl 25 mg tablet TAKE 1 TABLET BY MOUTH EVERY 6 HOURS NEEDED 02/23 completed Not Available Not Available Not Available zolpidem 5 mg tablet 05/25 completed Not Available Not Available Not Available lorazepam 1 mg tablet 02/23 completed Not Available Not Available Not Available Pepcid 20 mg tablet Take 1 tablet twice a day by oral route around the clock for 30 days. 02/23 completed Not Available Not Available Not Available zolpidem 10 mg tablet 05/25 completed Not Available Not Available Not Available carbidopa 25 mg-levodopa 100 mg tablet 05/25 completed Not Available Not Available Not Available hydroxyzine HCl 10 mg tablet TAKE 1 TABLET BY MOUTH THREE TIMES DAILY NEEDED 2023 active Not Available Not Available Not Avai lable ondansetron 4 mg disintegrat ing tablet PLACE 1 TABLET ON TONGUE TO DISSOLVE EVERY 6 HOURS NEEDED FOR FORNAUSEA AND VOMITING 02/23 completed Not Available Not Available Not Available naproxen 500 mg tablet Take 1 tablet twice a day by oral route after meals. 02/23 completed Not Available Not Available Not Available oxycodone 5 mg tablet TAKE 1/2 TABLET BY MOUTH EVERY 4 HOURS FOR 3 DAYS NEEDED FOR PAIN 02/23 completed Not Available Not Available Not Available nicotine 21mg/24hr-1 4mg/24hr-7m g/24hr daily transderm patches,seq uentl Apply 1 patch every day by transderm al route as directed for 90 days. 02/23 completed Not Available Not Available Not Available cyclobenzap rine 5 mg tablet 05/25 completed Not Available Not Available Not Available magnesium 02/23 completed Not Available Not Available Not Available FeroSul 325 mg (65 mg iron) tablet TAKE 1 TABLET BY MOUTH EVERY DAY 02/23 completed Not Available Not Available Not Available buprenorphi ne 2 mg-naloxone 0.5 mg sublingual film 02/23 completed Not Available Not Available Not Available buprenorphi ne 8 mg-naloxone 2 mg sublingual film DISSOLVE 1 FILM UNDER TONGUE TWICE DAILY AFTER COMPLETIO N OF MICRODOSE 02/23 completed Not Available Not Available Not Available 28 mg iron-800 mcg tablet TAKE 1 TABLET BY MOUTH EVERY DAY 02/23 completed Not Available Not Available Not Available naloxone 4 mg/actuatio n nasal spray CALL 911. SPR CONTENTS OF ONE SPRAYER (0.1ML) INTO ONE NOSTRIL. REPEAT IN 2-3 MIN IF SYMPTOMS OF OPIOID EMERGENCY PERSIST, ALTERNATE NOSTRILS active Not Available Not Available No t Available Vitals Date Recorded Body height Body mass index (BMI) Body weight Oxygen saturation Oxygen saturation in Arterial blood by Pulse oximetry Heart rate Respiratory rate Systolic blood pressure Diastolic blood pressure Provider Name and Address Organization Details Last Updated DateTime 4 173.99 cm 25 kg/m2 53184.9 3 g 96 % 96 % 70 /min 16 /min 100 mm[Hg] 68 mm[Hg] Ashlie Brunner MA [place] - [facility] 4 14:47:55 Date Recorded Body height Body weight Body mass index (BMI) Body temperature Oxygen saturation Oxygen saturation in Arterial blood by Pulse oximetry Heart rate Systolic blood pressure Diastolic blood pressure Provider Name and Address Organization Details Last Updated DateTime 7 173.99 cm 99218.3 3 g 18.7 kg/m2 98.3 [degF] 96 % 96 % 66 /min 90 mm[Hg] 62 mm[Hg] Forrest Dueñas MA [place] - [facility] 7 15:06:09 Social History Question Answer Notes LastModified by Organizat ion Details LastModified Time Tobacco Smoking Status Current Every Day Smoker cigarettes Forrest Dueñas MA null, MD - [facility] 05/25/2016 14:58:29 What Is Your Level Of Alcohol Consumption? None Information not available 05/25/2016 What Was The Date Of Your Most Recent Tobacco Screening? 04/05/2023 [email or web address] Information not available 04/05/2023 How Much Tobacco Do You Smoke? 0.5 PPD Information not available 05/25/2016 Has Tobacco Cessation Counseling Been Provided? Yes [email or web address] Information not available 04/05/2023 On What Date Was Tobacco Cessation Counseling Provided? 04/05/2023 [email or web address] Information not available 04/05/2023 How Many Years Have You Smoked Tobacco? 9 Information not available 05/25/2016 Sex: Unknown Functional Status None recorded. Mental Status None recorded. Family History Relationship Description Onset Age of this Age Resolved Age Notes LastModified by Organization Details LastModified Time Mother Attention deficit hyperactivit y disorder Not available 04/29 14:56:43 Mother Depressive disorder Not available 05/25 14:56:54 Mother Disorder of thyroid gland Not available 05/25 14:57:07 Mother Heart disease Not available 05/25 14:57:16 Mother Migraine Not availab le 05/25/2016 14:57:50 Mother Osteoporosis Not estephania ilable 05/25/2016 14:58:00 Brother Attention deficit hyperactivit y disorder Not available 04/29 14:56:43 Father Disorder of thyroid gland Not available 05/25 14:57:07 Father Hypertensive disorder Not available 05/25 14:57:27 Father Hypercholest erolemia Not available 05/25 14:57:34 Father Migraine Not availab le 05/25/2016 14:57:50 Medical History Condition Response Anemia N Anxiety Disorder Y Muscle, Joint, or Bone Problems N Gynecological History Statement/Question Response Flow Moderate Date of LMP 03/06/2023 LMP Approximate Obstetrics History GPAL:G 2 P 0 0 1 1 Type Value Spontaneous 1 Living 1 Total 2 Past Encounters Encounter ID Performer Location Encounter Start Date Encounter Closed Date Diagnosis/Indication Diagnosis SNOMED-CT Code Diagnosis ICD10 Code Diagnosis Note [id number] [facility] (Adult Med) [address] [place] [address] 05/25/2016 14:39:00 05/25/2016 15:49:26 Injury of neck 91683434 S19.89XS [facility]. Pain in right knee 56932 60906 73520 M25.561 Is chronic since childhood and was told by orthopedic that nothing can be done, same as her left knee. Pain in left knee 970278 7822 36726 M25.562 Injury of foot 787224365 S97.82XS [facility]. 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 Patient hospitaliz ed for withdrawal symptoms at the beginning of December 2022, was on methadone taper.did not discuss during initial visit Depression screening 171 570471 Z13.31 PHQ 0 Change in skin lesion 39 5132826 L98.9 c/o L spots on L arm(2) 3 mm circular, skin colored papules to L forearm and L upper arm, w/o change in shape/size /colorpt requesting dermatolog y referral Screening for malignant neoplasm of cervix 216729195 Z12.4 refer to [employer] Generalize d anxiety disorder 02577201 F41.1 MYKE 5doesn't like leaving the house, does coloring books to help with anxiety5/7 days feels anxiouster rified something might happen to babydiscus sed medication and counseling would like to try medication trial hydroxyzin e low dose, advised of ADRf/u in 1 mo Health Concerns Section Related Observation LastModified by Organization Detai ls LastModified Time None Recorded Concern Status LastModified by Organization Details LastModified Time None Recorded Advance Directives Directive None Recorded Payers Encounter Date Sequence Insurance Name Policy Number Policy [place] Covered Member ID [place] Member ID Guarantor Name 05/25/2016 1 [facility] (MEDICAID HMO) Melissa Vazquez [id number] Melissa Vazquez 04/05/2023 1 [facility] PRIOR TO 09/25/2020 (MEDICAID REPLACEMENT - HMO) Melissa Vazquez [id number] Melissa Vazquez 04/05/2023 1 [facility] - DOS ON OR AFTER 2020 - DUAL ELIGIBLE (MEDICARE REPLACEMENT/AD VANTAGE - HMO) Melissa Vazquez [id number] Melissa Vazquez Notes Date Note Type Note Provider Name and Address Organization Details Recorded Time 04/05/2023 text/html Pt presents to establish care as a new patient. Reports she gave 4 months ago to baby girl, was following with Dr. Zayas at [facility]. Started her first post period last month, states she had light bleeding. Concerned about skin cancer, has 2 spots on her L arm and 1 spot on her L calf that appeared after she used a tanning bed. Denies fever, chills, chest pain, SOB, n/v/d, abd pain, dizziness, weakness, or headaches. LUIS E DUMONT Attn: Accounting,[address] [facility], [place], [address], [place] MD - [facility] 04/05/2023 16:02:14 OBGyn Episode No OBEpisode recorded.
== END 2024-06-19 16:58 | disposition home or self-care (01) ==
PROVIDERS: Registered Nurse; Emergency Provider Emergency Medicine
DX: K59.00 Constipation, unspecified (principal); F17.210 Nicotine dependence, cigarettes, uncomplicated; F41.9 Anxiety disorder, unspecified
CPT/HCPCS: 36415; 74018; 80053; 81001; 83690; 85025; 99283

== ENCOUNTER 2024-12-01 14:32 | Emergency (ER) | payer OTHER, SELFPAY ==
--- OUTSIDE RECORDS SUMMARY | 2015-10-17 19:00 | XMS_ITS | Continuity of Care Document ---
Author Organization [facility] Address [address] [place] [address] Phone Care Team Providers Care Instrument Maker Apprentice Name Role Phone Checo Okeefe MD Unavailable Unavailable Advance Directives Directive Yes / No Effective Date File Name No Information Encounters Encounter Description Practice Location Reason(s) For Visit Diagnoses Date Provider Providers Copied on Encounter [facility], [address], [place], [place], [id number], tel:[phone] Scientologist [facility] Ne No Information Maldonado Kessler. [address] [place] [address], [address], [id number], . tel:[phone] Referring Provider: Checo Okeefe, [address] [place] [address], [address]. tel:[phone] Family History Family Member Type Diagnosis Age At Onset No Information Payers Payer name Insurance type Covered libertarian ID Authoriza zo(s) [employer] CI [id number] Social History Type Description Quantity Date Captured Comments Sex Female Smoking Status No Information Chief Complaint And Reason For Visit No Information Reason For Referral Reason For Referral No Information History Of Present Illness Encounter Date Complaint History Of Prese nt Illness No Information Functional Status Date Functional Assessmen t No Information Instructions Date Instruction Additional Infor mation No Information Assessments Type Assessment Date No Information Patient Care Teams Name Effective Dates (start - stop) Status Members No Information
--- OUTSIDE RECORDS SUMMARY | 2024-12-01 14:35 | XMS_ITS | Patient Health Record ---
Author Organization [facility] Address [address] [place] [address] Support Name Relationship Address Phone Melissa Vazquez Guarantor Unknown [phone] Reason For Referral No Information Plan Of Treatment No Information Insurance Providers Payer Name Payer Address Payer Phone Subscriber Number Group Number Insured Name Patient Relationship to Insured Coverage Start Date Coverage End Date [facility] Att Claims Department [address] [place] [address] [id number] Melissa Vazquez Self - patient is the insured 4
[2024-12-01 14:42] VITALS: BP 121/74; PULSE 90; RESP 20; TEMP 36.8; O2SAT 100
[2024-12-01 14:54] LABS: BEDSIDEPREGUCG Positive (Negative)
[2024-12-01 15:18] LABS: Add Urine Microscopic? YES; Appearance Urine Clear (Clear); Glucose Urine UA Negative (Negative); Leukocyte Esterase Ur Negative LEU/UL (Negative); Nitrate Urine Negative (Negative); Non Pathogenic Casts 0-2; Specific Grav Ur 1.029 (1.001-1.035)
== END 2024-12-01 17:45 | disposition left against medical advice (07) ==
PROVIDERS: Emergency Provider Student in an Organized Health Care Education/Training Program
DX: O20.9 Hemorrhage in early pregnancy, unspecified (principal)
CPT/HCPCS: 81001; 81025; 99199

== ENCOUNTER 2025-03-01 19:33 | Emergency (ER) | payer OTHER, SELFPAY ==
--- NOTE | 2025-03-01 19:56 | PC.NURSE ---
This RN noticed pt went into triage restroom after EMS dropped her off before triaged/checked by tooling engineering tech. Pt is here for possible overdose. ED security and rn relief charge made aware that pt has been in there for over 10 minutes. Ed security had checked on pt five minutes prior. screw machine hand states to get pt out of the restroom at this time. ED security made aware and assists getting pt out of restroom.
[2025-03-01 20:10] VITALS: BP 128/75; PULSE 109; RESP 20; TEMP 36.8; O2SAT 100
[2025-03-01 20:17] VITALS: PULSE 100
[2025-03-01 20:42] VITALS: RESP 17; O2SAT 97
--- NOTE | 2025-03-01 20:57 | ED.GENADULT ---
HPI - General Adult General Chief complaint: Unspecified Stated complaint: found in car with taking xanax Time Seen by Provider: 03/01/25 20:43 Source: patient and EMS Mode of arrival: EMS Limitations: no limitations History of Present Illness HPI narrative: patient is a 35-year-old female presents to the emergency department by EMS for being found in the car sleeping by PD. Patient admits to taking Xanax today, does not take it regularly, took it in the past a long time ago and this was the 1st time taking it in a long time, did not take it as a means to harm herself. Denies any alcohol use or illicit drug use otherwise. Denies any recent injuries. Admits to being hungry and thirsty. Last menstrual period was a couple weeks ago. Denies any current complaints. Did not want to come to the ER today. Related Data Home Medications ?Medication ?Instructions ?Recorded ?Confirmed ?Last Taken ?Type prenat.vits,susie,jfa-jrfp-fjesi 1 tablet PO DAILY 05/19/22 12/26/24 Unknown History Allergies Allergy/AdvReac Type Severity Reaction Status Date / Time minocycline Allergy Mild Rash Verified 12/26/24 14:47 tetracycline Allergy Mild Rash Verified 12/26/24 14:47 Review of Systems Review of Systems: A 10 system review of systems was completed on the patient and is negative except for what is stated in the HPI. Nursing and ancillary documentation was reviewed. PMFSH Past Medical History Medical History Suppression of menses Anxiety Family History Family History Father Hypertension Grandparent Cerebrovascular accident Malignant neoplasm of skin Mother Heart disease Malignant neoplasm of skin Social History Social History Smoking status: Current every day smoker Tobacco type: cigarettes Alcohol intake: current Alcohol use details: occasional Substance use: never Living arrangements: with family Occupation/Education: unemployed Gender identity (if verbalized by the patient): Female Sexual Orientation (if Verbalized by the Patient): Straight or Heterosexual Exam Narrative: CONST: No acute distress. Well nourished. Sleeping comfortably upon my arrival to the room, arouses to verbal stimuli. HENMT: Head is normocephalic and atraumatic. Tacky mucous membranes. No posterior oropharynx erythema. EYES: No scleral icterus. No conjunctival injection or pallor. PERRL. pupils 2-3 mm bilaterally. NECK: No meningeal signs. RESP: Able to speak in full sentences. Normal respiratory effort. CTAB. CARDIO: Regular rate. Regular rhythm. 2+ DP and radial pulses bilaterally. GI: Nondistended. No tenderness to palpation. Soft. : No CVA tenderness to palpation. SKIN: No rashes or lesions noted on exposed skin. NEURO: Oriented x3. Moves all extremities. No focal neurological deficits. Speech is clear and fluent. EXTREM/MSK/BACK: No pedal edema. PSYCH: Normal affect. Course Vital Signs Vital signs: Vital Signs Temperature 98.3 F 03/01/25 20:10 Pulse Rate 109 H 03/01/25 20:10 Respiratory Rate 20 03/01/25 20:10 Blood Pressure 128/75 03/01/25 20:10 Pulse Oximetry 100 03/01/25 20:10 Oxygen Delivery Room Air 03/01/25 20:10 Temperature 98.3 F 03/01/25 20:10 Pulse Rate 85 03/01/25 23:45 Respiratory Rate 14 03/01/25 23:45 Blood Pressure 134/81 03/01/25 23:45 Pulse Oximetry 97 03/01/25 23:45 Oxygen Delivery Room Air 03/01/25 20:10 MDM MDM Narrative Medical decision making narrative: Patient presents with the above complaint. Initial vitals are remarkable for no significant abnormalities. Physical examination as noted above. Plan discussed: Continues cardiac monitoring, continuous pulse oximetry, food and beverage, monitor. Patient was reassessed at the bedside. Patient is in no acute distress. Tolerating oral intake, ambulating with a steady gait, feels well at this time and is ready to go. The patient has remained stable throughout the entire ED visit. Counseled patient regarding diagnostic results and potential diagnosis. Anticipatory guidance provided. Patient instructed to follow up with PCP within 3 days. Patient counseled on: false reassurance from an emergency department evaluation; no current evidence of a medical emergency; return immediately for any new, recurrent, worsening, concerning, or refractory symptoms. Additional verbal and printed discharge instructions were given and discussed with the patient. Patient verbally acknowledges understanding of condition and discharge instructions. All questions were answered to the patient's satisfaction. Patient is in agreement with the plan of care. The patient is stable for discharge and was discharged without incident. Differential Diagnosis Differential Diagnosis: Substance abuse. Discharge Plan Discharge Clinical Impression: Substance abuse Patient Disposition: Home Condition: Stable Instructions: Polysubstance Use Disorder (ED) Additional Instructions: Follow-up the primary care physician in the next few days for reassessment, stay well hydrated, do not use any drugs, return to the emergency department for any new or concerning symptoms especially any emergent concerns for life, limb, eyesight. Patient Language: Egyptian Prescriptions: No Action prenat.vits,susie,[id number] Tablet 1 tablet PO DAILY Follow-up/Referrals: Artemio Camp MD [Physician, Family Practice] - 3 Days UNKNOWN,DOCTOR [Non-Staff] Time of Disposition: 00:02
[2025-03-01 21:52] VITALS: BP 115/75; PULSE 81; RESP 15; O2SAT 99
[2025-03-01 22:46] VITALS: BP 134/81; PULSE 85; RESP 14; O2SAT 97
--- NOTE | 2025-03-01 23:41 | PC.NURSE ---
pt seen [facility] and not in her room. This RN asked pt if she still wishes to be seen and pt states I don't want to be seen anymore
[2025-03-01 23:45] VITALS: BP 134/81; PULSE 85; RESP 14; O2SAT 97
== END 2025-03-01 23:47 | disposition home or self-care (01) ==
PROVIDERS: Emergency Provider Student in an Organized Health Care Education/Training Program; PCP Physician Assistant
DX: F13.10 Sedative, hypnotic or anxiolytic abuse, uncomplicated (principal); F17.210 Nicotine dependence, cigarettes, uncomplicated
CPT/HCPCS: 99284